=== PATIENT | female | born 1990 | race Caucasian/White ===

== ENCOUNTER → 2020-02-25 | Outpatient (REF) | payer MEDICAID, OTHER ==
[~2020-02-25] MED LIST: ACET160S3; CLEO150C; DECADRON
== END ==
LOC: M SFHCWAGY 13:02
PROVIDERS: ATTEND Advanced Practice Midwife
DX: Z12.4 Encounter for screening for malignant neoplasm of cervix (principal)

== ENCOUNTER → 2020-02-25 | Outpatient (CLI) | payer MEDICAID, OTHER ==
[2020-02-25 11:15] LABS: BASO % 0.3 % (0.0-1.0); EOS % 0.7 % (0.0-3.0); HEMATOCRIT 34.9 % (36.0-47.0); LYMPH # 1.6 10^3/uL (1.5-5.0); LYMPH % 26.9 % (24.0-44.0); MEAN CORPUSCULAR HEMOGLOBIN 33.1 pg (27.0-33.0); MEAN CORPUSCULAR HGB CONC 34.4 g/dl (32.0-36.5); MEAN CORPUSCULAR VOLUME 96.4 fl (80.0-96.0); MONO # 0.3 10^3/uL (0.0-0.8); MONO % 5.6 % (0.0-5.0); NEUTROPHILS # 3.9 10^3/uL (1.5-8.5); NEUTROPHILS % 66.2 % (36.0-66.0); PLATELET COUNT, AUTOMATED 135 10^3/uL (150-450); RED BLOOD COUNT 3.62 10^6/uL (4.00-5.40); WHITE BLOOD COUNT 5.9 10^3/uL (4.0-10.0)
[2020-02-25 12:32] LABS: HEPATITIS C VIRUS ABY INDEX 0.1 INDEX (<0.8); HIV 1&2 SCREEN CENTAUR NEGATIVE (NEGATIVE)
[2020-02-25 13:16] LABS: CHLAMYDIA DNA AMPLIFICATION NEGATIVE (NEGATIVE); GC DNA AMPLIFICATION NEGATIVE (NEGATIVE)
== END ==
LOC: M PLALAB 08:16
PROVIDERS: ATTEND Advanced Practice Midwife
DX: Z34.01 Encounter for supervision of normal first pregnancy, first trimester (principal); Z3A.00 Weeks of gestation of pregnancy not specified

== ENCOUNTER → 2020-03-02 | Outpatient (REF) | payer MEDICAID, OTHER | LOC: M SFHCLERA 16:10 | PROVIDERS: ATTEND Nurse Practitioner Family | DX: Z20.828 Contact with and (suspected) exposure to other viral communicable diseases (principal) ==

== ENCOUNTER → 2020-03-23 | Outpatient (CLI) | payer OTHER | LOC: M PLALAB 15:30 | PROVIDERS: ATTEND Obstetrics & Gynecology | DX: Z34.82 Encounter for supervision of other normal pregnancy, second trimester (principal); Z3A.00 Weeks of gestation of pregnancy not specified ==

== ENCOUNTER → 2020-04-21 | Outpatient (CLI) | payer OTHER ==
--- NOTE | 2020-04-22 08:31 | REP ---
INDICATION: ANATOMY COMPARISON: None. TECHNIQUE: Transabdominal obstetrical ultrasound with color Doppler evaluation. FINDINGS: Examination demonstrates a single live intrauterine in breech presentation. motion is identified by technologist. Placenta is noted anterior and grade 1 without evidence for placenta previa or abruption. Amniotic fluid volume is normal. Cervix measures 4.2 cm in length and appears closed.. Gestational age by current measurements 20 weeks 4 days with RAYA 09/04/2020. FHR equals 138 beats per minute. BPD: 4.7 cm 20 weeks 1 day HC: 18.6 cm 20 weeks 6 days AC: 16.0 cm 21 weeks 0 days FL: 3.4 cm twenty weeks 4 days HL: 3.1 cm 20 weeks 1 day HC/AC: 1.16 Estimated weight 381 grams (59thpercentile). Anatomical assessment demonstrates normal structures including cranium, choroid plexus, cavum, cerebellum/posterior fossa, facial features, lungs, four-chamber heart/ventricular outflow tracts, diaphragm, stomach, cord insertion/three-vessel cord, kidneys/bladder, spine, and extremities. IMPRESSION: Single live intrauterine in breech presentation demonstrating appropriate estimated weight. Anatomical assessment is complete and normal. <Electronically signed by Arnoldo Ivy > 04/22/20 [id number]
== END ==
LOC: M WHC 14:02
PROVIDERS: ATTEND Obstetrics & Gynecology
DX: O32.1XX0 Maternal care for breech presentation, not applicable or unspecified (principal); Z36.89 Encounter for other specified antenatal screening; Z3A.20 20 weeks gestation of pregnancy

== ENCOUNTER → 2020-06-29 | Outpatient (REF) | payer OTHER ==
[2020-06-29 13:52] LABS: HEMATOCRIT 38.7 % (36.0-47.0); HEMOGLOBIN 12.6 g/dl (12.0-15.5); MEAN CORPUSCULAR HEMOGLOBIN 32.4 pg (27.0-33.0); MEAN CORPUSCULAR HGB CONC 32.6 g/dl (32.0-36.5); MEAN CORPUSCULAR VOLUME 99.5 fl (80.0-96.0); PLATELET COUNT, AUTOMATED 135 10^3/uL (150-450); RED BLOOD COUNT 3.89 10^6/uL (4.00-5.40); WHITE BLOOD COUNT 7.7 10^3/uL (4.0-10.0)
== END ==
LOC: M PLALAB 09:16
PROVIDERS: ATTEND Advanced Practice Midwife
DX: Z3A.24 24 weeks gestation of pregnancy (principal)

== ENCOUNTER → 2020-08-11 | Outpatient (REF) | payer OTHER ==
[2020-08-11 14:21] LABS: HEMATOCRIT 39.9 % (36.0-47.0); MEAN CORPUSCULAR HGB CONC 32.6 g/dl (32.0-36.5); MEAN CORPUSCULAR VOLUME 101.3 fl (80.0-96.0); PLATELET COUNT, AUTOMATED 124 10^3/uL (150-450); RED BLOOD COUNT 3.94 10^6/uL (4.00-5.40); WHITE BLOOD COUNT 9.7 10^3/uL (4.0-10.0)
== END ==
LOC: M PLALAB 09:37
PROVIDERS: ATTEND Obstetrics & Gynecology
DX: Z34.03 Encounter for supervision of normal first pregnancy, third trimester (principal); Z36.89 Encounter for other specified antenatal screening

== ENCOUNTER → 2020-08-22 | Outpatient (CLI) | payer OTHER ==
[~2020-08-22] MED LIST changes: +ALBU83IN INH; +PRENMIS3 PO
== END ==
LOC: M LABSMTC 10:32
PROVIDERS: ATTEND Anesthesiology
DX: Z01.812 Encounter for preprocedural laboratory examination (principal); Z20.822 Contact with and (suspected) exposure to COVID-19

== ENCOUNTER 2020-08-27 05:47 | Inpatient (IN) | payer OTHER ==
[~2020-08-27] VITALS: Ht 160 cm; Wt 80.6 kg
[2020-08-27] VITALS (7 sets, daily range): BP systolic 111–139; BP diastolic 59–87
[2020-08-27] MEDS ORDERED: ACET325C5 PO (06:03)
[2020-08-27] MEDS ORDERED: ceFAZolin SOD 2 GM in IV 1 EA IV ONE (06:20)
[2020-08-27] MEDS ORDERED: BICITRA 30ML SOLN UDC PO ONE (06:20)
[2020-08-27 06:41] LABS: HEMATOCRIT 41.2 % (36.0-47.0); HEMOGLOBIN 13.6 g/dl (12.0-15.5); MEAN CORPUSCULAR HEMOGLOBIN 32.4 pg (27.0-33.0); MEAN CORPUSCULAR VOLUME 98.1 fl (80.0-96.0); PLATELET COUNT, AUTOMATED 113 10^3/uL (150-450); WHITE BLOOD COUNT 8.8 10^3/uL (4.0-10.0)
[2020-08-27] MEDS ORDERED: OXYTOCIN INJ 10 UNITS/ML VIAL (J2590) As Ordered ONE (07:19)
[2020-08-27] MEDS ORDERED: ONDANSETRON 4MG/2ML VIAL As Ordered ONE (07:19)
[2020-08-27] MEDS ORDERED: dexameTHASONE 4 MG/ML 1ML VIAL (J1100 PER 1MG) As Ordered ONE (07:19)
[2020-08-27] MEDS ORDERED: KETOROLAC 60MG 2ML VIAL As Ordered ONE (07:19)
[2020-08-27] MEDS ORDERED: MORPHINE PRES-FREE INJ 10 MG/10 ML VIAL (J2274) As Ordered ONE (07:20)
[2020-08-27] MEDS ORDERED: fentaNYL 100 MCG/2 ML INJECTION (J3010) As Ordered ONE ×2 (07:20→09:22)
[2020-08-27] MEDS ORDERED: diphenhydrAMINE 50MG/ML VIAL (J1200) IV PRN (07:51)
[2020-08-27] MEDS ORDERED: NALBUPHINE HCL 10 MG/ML AMP (J2300) IV PRN ×2 (07:51→10:00)
[2020-08-27] MEDS ORDERED: METOCLOPRAMIDE INJ 10MG/2ML VIAL (J2765 PER 1) IV PRN (07:51)
[2020-08-27] MEDS ORDERED: ONDANSETRON 4MG/2ML VIAL IV PRN ×3 (07:51→10:00)
[2020-08-27] MEDS ORDERED: NALOXONE INJ 0.4MG/1ML VIAL (J2310 PER 1MG) IV PRN ×2 (07:51)
[2020-08-27] MEDS ORDERED: ePHEDrine SULFATE 25 MG/5 ML(5MG/ML) SYRINGE As Ordered ONE (08:14)
[2020-08-27] MEDS ORDERED: RHOGAM 300 MCG (1500 IU) INJ (J2790) IM SCH (09:45)
[2020-08-27] MEDS ORDERED: LR 1,000 ML IV SCH (09:45)
[2020-08-27] MEDS ORDERED: MEASLES,MUMPS,RUBELLA VACCINE INJ (MMR-II) (90707) SC SCH (09:45)
[2020-08-27] MEDS ORDERED: HYDROmorphone (DILAUDID) 4 MG TAB PO PRN (09:45)
[2020-08-27] MEDS ORDERED: SIMETHICONE 80MG CHEW TAB PO PRN (09:45)
[2020-08-27] MEDS ORDERED: HYDROmorphone 2 MG TAB PO PRN (09:45)
[2020-08-27] MEDS ORDERED: fentaNYL 100 MCG/2 ML INJECTION (J3010) IV PRN (10:00)
[2020-08-27] MEDS ORDERED: oxyCODONE 5MG TAB PO PRN (10:00)
[2020-08-27] MEDS ORDERED: HYDROMORPHONE HCL 0.5 MG/ 0.5 ML SYRINGE (J1170 PER 1) IV PRN (10:00)
[2020-08-27] MEDS ORDERED: OXYTOCIN DRIP 30 UNITS in IV 1 EA IV SCH (10:00)
[2020-08-27] MEDS ORDERED: OXYTOCIN 30 UNITS IN 0.9% NaCl 500ML IV BAG (J2590) As Ordered ONE (10:18)
[2020-08-27] MEDS ORDERED: oxyCODONE 5MG TAB As Ordered ONE (10:41)
[2020-08-27] MEDS ORDERED: diphenhydrAMINE 50MG/ML VIAL (J1200) As Ordered ONE (10:41)
[2020-08-27] MEDS ORDERED: METOCLOPRAMIDE INJ 10MG/2ML VIAL (J2765 PER 1) As Ordered ONE (10:48)
[2020-08-27] MEDS: KETOROLAC 30 MG/ML 1ML VIAL IV SCH ×2 (14:40→20:21)
[2020-08-27] MEDS: DOCUSATE SODIUM 100MG CAPSULE PO SCH (20:20)
[2020-08-28 02:00] VITALS: BP 118/72
[2020-08-28] MEDS: KETOROLAC 30 MG/ML 1ML VIAL IV SCH (03:32)
[2020-08-28 06:00] VITALS: BP 110/59
[2020-08-28] MEDS ORDERED: PERCOCET 5MG/325MG TAB PO PRN (08:05)
[2020-08-28] MEDS: DOCUSATE SODIUM 100MG CAPSULE PO SCH ×2 (08:08→19:56)
[2020-08-28] MEDS: PRENATAL VITAMINS CHEWABLE TABLET PO SCH (08:08)
--- NOTE | 2020-08-28 08:10 | IPNPDOC ---
Progress Note Date of Service: Aug 28, 2020 Day#: 1 Progress Note SUBJECT: Becky is a 29-year-old female who had a primary section ye sterday for breech presentation. She does report cramping this morning. She has been ambulating, eating a regular diet and voiding without issues. OBJECTIVE: VITAL SIGNS: Within normal limits, afebrile. Alert and oriented times three. Breath sounds clear to auscultation. Regular rate with out use of accessory muscles Abdomen: Fundus firm at U. Dressing intact. Minimal lochia. ASSESSMENT: Day 1 postoperative PLAN: 1. Continue supportive nursing care. 2. Kpad ordered for discomfort. 3. Dilaudid switched to Percocet PO. 4. Patient may shower today. 5. Patient to ambulate. 6. Anticipate discharge to home tomorrow. VS, I&O, 24H, Fishbone Vital Signs/I&O Vital Signs Date Time Temp Pulse Resp B/P (MAP) Pulse Ox O2 Delivery O2 Flow Rate FiO2 08/28/20 06:00 97.1 81 16 110/59 (76) 100 Room Air I&O- Last 24 Hours up to 6 AM 08/28/20 06:00 Intake Total 1810 ml Output Total 3050 ml Balance -1240 ml TALIB MITCHELL CNM Aug 28, 2020 08:10
[2020-08-28 08:49] LABS: HEMATOCRIT 31.5 % (36.0-47.0); MEAN CORPUSCULAR HEMOGLOBIN 32.6 pg (27.0-33.0); MEAN CORPUSCULAR HGB CONC 32.4 g/dl (32.0-36.5); MEAN CORPUSCULAR VOLUME 100.6 fl (80.0-96.0); RED BLOOD COUNT 3.13 10^6/uL (4.00-5.40); WHITE BLOOD COUNT 9.3 10^3/uL (4.0-10.0)
[2020-08-28 09:26] LABS: HEMOGLOBIN 10.2 g/dl (12.0-15.5); PLATELET COUNT, AUTOMATED 91 10^3/uL (150-450)
[2020-08-28 10:01] VITALS: BP 131/77
[2020-08-28] MEDS: IBUPROFEN 800 MG TAB PO SCH ×2 (11:03→18:36)
--- NOTE | 2020-08-28 12:22 | RO ---
OPERATIVE NOTE DATE OF OPERATION: 08/27/2020 STAFF SURGEON: Sangeeta Mullins MD POULTRY SLAUGHTERER: Renata Hernandez CNM CLINICAL SERVICE: Obstetrics. INDICATION FOR OPERATION: Radha is a 29-year-old G1, P1-0-0-1 who at term was noted to have breech presentation and she was given the option of ECV versus a primary section and elected for a section, which was performed at 39 and 0/7 weeks. PREOPERATIVE DIAGNOSIS: Persistent breech presentation at term. POSTOPERATIVE DIAGNOSIS: Persistent breech presentation at term, delivered. MATERIAL FORWARDED TO THE LAB FOR EXAMINATION: None. DESCRIPTION OF FINDINGS: Male in double footling breech presentation. Apgars 7/9. Weight 2850 grams or 6 pounds 5 ounces. There was a double nuchal cord. The uterus was normal in appearance. INFECTION CLASSIFICATION: 2. ESTIMATED BLOOD LOSS: 600 mL. URINE OUTPUT: 300 mL of clear yellow urine. IV FLUIDS: 2200 mL of lactated Ringer's. OPERATION PERFORMED: Primary low transverse section. DESCRIPTION OF OPERATION: After obtaining informed consent, the patient was taken to the operating room. She had a reactive NST prior. She received spinal anesthesia. Méndez catheter was placed. Bilateral sequential compression devices were placed. She was prepped and draped in normal sterile fashion in the dorsal supine position with a left lateral tilt. She received 2 grams of IV Ancef prophylactically. Timeout was performed to confirm the patient's name, date of , procedure, and indications. The team was in agreement. Spinal anesthesia was found to be adequate using an Allis clamp. Pfannenstiel skin incision was made with a scalpel and carried through to the underlying layer of fascia. Fascia was incised in the midline and the incision was extended laterally with Chand scissors. Superior and inferior aspects of the fascial incision were grasped with Bettye clamps, elevated, and the underlying rectus muscles were dissected off bluntly and sharply. Peritoneum was entered digitally. Rectus muscles were in the midline. Peritoneal incision was extended superiorly and inferiorly with good visualization of the bladder. The Mobius retractor was inserted. The vesicouterine peritoneum was identified, grasped with pickups, and entered sharply with Metzenbaum scissors. Incision was extended laterally and the bladder flap was created digitally. The lower uterine segment was scored in a transverse fashion with the scalpel. Uterus was entered bluntly and the incision was extended with traction. Clear amniotic fluid was noted. The 's position at that point was double footling breech and the feet were delivered and then the infant was delivered to the level of the buttocks. The legs were delivered using Pinard maneuver. At the level of the shoulders, the arms were then delivered using Lovset maneuver and fundal pressure was applied. The head was delivered atraumatically. The nose and mouth were suctioned with bulb suction. Cord was clamped x2 and cut. Infant was handed off to the awaiting nursing team. Placenta was removed with uterine massage and traction on the umbilical cord. The uterus was left in situ, cleared of all clots and debris. The uterine incision was repaired with 0-Vicryl suture in a running-locked fashion. A second layer of 0-Monocryl was used to close the hysterotomy incision in an imbricating fashion. Notably, she had many small tears with pulling through of the suture. It took significant time to gain complete hemostasis, and afterward, I applied a layer of Ryan. The gutters were cleared of all clots and the Mobius was removed. The peritoneum was closed using 3-0 Vicryl suture in a running fashion. Rectus muscles were reapproximated with [id number] stitches using 3-0 Vicryl suture. Fascia was reapproximated with 0-Vicryl suture in a running fashion. Subcutaneous tissue was copiously irrigated. Quniton's fascia was reapproximated using 3-0 Vicryl sutures in a running fashion. The skin edges were reapproximated using three inverted interrupted stitches using 3-0 Vicryl sutures followed by a running subcuticular stitch using 4-0 Monocryl suture. Incision was cleaned using wet lap. Steri-Strips were applied in the usual fashion perpendicular to the Pfannenstiel incision. Optifoam was applied overlying. The vagina was cleared of all blood clot without active bleeding noted. The fundus was firm at U-2. All counts were correct x2. The procedure was without complications. The patient tolerated the procedure well. She was taken to the recovery room on Labor and Delivery in stable condition. DELIA
[2020-08-28 14:00] VITALS: BP 135/65
[2020-08-28] MEDS: PERCOCET 5MG/325MG TAB PO PRN ×2 (14:03→19:57)
[2020-08-28 18:00] VITALS: BP 136/72
[2020-08-28 21:51] VITALS: BP 130/59
[2020-08-29 02:06] VITALS: BP 121/58
[2020-08-29] MEDS: IBUPROFEN 800 MG TAB PO SCH ×2 (02:11→11:14)
[2020-08-29] MEDS: PERCOCET 5MG/325MG TAB PO PRN ×2 (02:12→08:28)
[2020-08-29 06:24] VITALS: BP 120/62
[2020-08-29] MEDS ORDERED: PERCOCET PO (07:48)
[2020-08-29] MEDS ORDERED: IBUP80TA PO (07:48)
--- NOTE | 2020-08-29 07:52 | OBDS ---
[facility] Obstetrical Discharge Sum. Obstetrical Discharge Summary Date: Aug 29, 2020 Time: 07:50 VDRL: Non-Reactive Rubella: Immune A/P, Post Course List any complications Admission diagnosis:Term breech presentation . Discharge diagnosis: Same Condition at Discharge: [stable] Discharge Instructions: [nothing in vagina for 6 weeks] Activity: [as tolerated ] Diet: [regular] Medications: [see list] Follow-up: [2 weeks ] Other: Silvano Dominguez DO Aug 29, 2020 07:52
[2020-08-29] MEDS: PRENATAL VITAMINS CHEWABLE TABLET PO SCH (08:28)
[2020-08-29] MEDS: DOCUSATE SODIUM 100MG CAPSULE PO SCH (08:28)
== END 2020-08-29 11:40 | disposition home or self-care (01) | DRG 540 ==
LOC: M LDI 05:47 → M OBS 10:57
PROVIDERS: ADMIT Obstetrics & Gynecology; ATTEND Obstetrics & Gynecology
PROC: 10D00Z1 Extraction of Products of Conception, Low, Open Approach (ICD-10-PCS; principal; 2020-08-27 07:30)
DX: O32.8XX0 Maternal care for other malpresentation of fetus, not applicable or unspecified (principal); Z3A.39 39 weeks gestation of pregnancy; Z37.0 Single live birth

== ENCOUNTER → 2021-06-22 | Outpatient (REF) | payer OTHER ==
[~2021-06-22] MED LIST changes: +ACET325C5 PO; +IBUP80TA PO; +PERCOCET PO
== END ==
LOC: M LAB REF 16:23
PROVIDERS: ATTEND Physician Assistant Medical
DX: R50.9 Fever, unspecified (principal); R53.83 Other fatigue

== ENCOUNTER → 2021-10-10 | Outpatient (REF) | payer OTHER | LOC: M PLALAB 14:59 | PROVIDERS: ATTEND Advanced Practice Midwife | DX: N89.8 Other specified noninflammatory disorders of vagina (principal) ==

== ENCOUNTER 2021-12-30 17:01 | Emergency (ER) | payer OTHER ==
[~2021-12-30] VITALS: Ht 160 cm; Wt 60.2 kg
[~2021-12-30 17:01] MED LIST changes: +ALBU2.5V10 INH; -ALBU83IN INH
[2021-12-30 17:03] VITALS: BP 106/55
[2021-12-30 21:02] LABS: BASO % 0.3 % (0.0-1.0); EOS # 0.1 10^3/uL (0.0-0.5); EOS % 1.1 % (0.0-3.0); HEMATOCRIT 40.2 % (36.0-47.0); HEMOGLOBIN 13.8 g/dl (12.0-15.5); LYMPH # 1.2 10^3/uL (1.5-5.0); LYMPH % 18.7 % (24.0-44.0); MEAN CORPUSCULAR HEMOGLOBIN 31.3 pg (27.0-33.0); MEAN CORPUSCULAR HGB CONC 34.3 g/dl (32.0-36.5); MEAN CORPUSCULAR VOLUME 91.2 fl (80.0-96.0); MONO # 0.3 10^3/uL (0.0-0.8); MONO % 4.8 % (2.0-8.0); NEUTROPHILS % 74.8 % (36.0-66.0); PLATELET COUNT, AUTOMATED 183 10^3/uL (150-450); RED BLOOD COUNT 4.41 10^6/uL (4.00-5.40); WHITE BLOOD COUNT 6.6 10^3/uL (4.0-10.0)
[2021-12-30 21:32] LABS: BLOOD UREA NITROGEN 6 MG/DL (7-18); CALCIUM LEVEL 8.5 MG/DL (8.5-10.1); CARBON DIOXIDE LEVEL 22 MEQ/L (21-32); CHLORIDE LEVEL 111 MEQ/L (98-107); CREATININE FOR GFR 0.58 MG/DL (0.55-1.30); GLOMERULAR FILTRATION RATE > 60.0 (>60); GLUCOSE, FASTING 90 MG/DL (70-100); POTASSIUM SERUM 3.7 MEQ/L (3.5-5.1); SODIUM LEVEL 140 MEQ/L (136-145)
[2021-12-30] MEDS ORDERED: NS 1,000 ML IV ONE (21:35)
[2021-12-30] MEDS ORDERED: ONDANSETRON 4MG 2ML VIAL IV ONE (21:35)
[2021-12-30 22:09] LABS: HCG, SERUM QUANTITATIVE 46832 MIU/ML
[2021-12-30] MEDS ORDERED: ONDA4TAB6 PO (23:02)
== END 2021-12-30 23:50 | disposition home or self-care (01) ==
LOC: M ED 17:01
DX: A08.4 Viral intestinal infection, unspecified (principal); Z3A.01 Less than 8 weeks gestation of pregnancy; O99.511 Diseases of the respiratory system complicating pregnancy, first trimester; J45.909 Unspecified asthma, uncomplicated; O99.341 Other mental disorders complicating pregnancy, first trimester; F31.9 Bipolar disorder, unspecified; F32.A Depression, unspecified; F41.9 Anxiety disorder, unspecified; F90.9 Attention-deficit hyperactivity disorder, unspecified type; Z88.0 Allergy status to penicillin; Z88.8 Allergy status to other drugs, medicaments and biological substances; Z77.098 Contact with and (suspected) exposure to other hazardous, chiefly nonmedicinal, chemicals
CPT/HCPCS: 80048; 81001; 84702; 85025; 96361; 96374; 99282; J2405

== ENCOUNTER → 2022-01-09 | Outpatient (CLI) | payer OTHER ==
[~2022-01-09] MED LIST changes: +ONDA4TAB6 PO
== END ==
LOC: M PLALAB 16:13
PROVIDERS: ATTEND Advanced Practice Midwife
DX: O20.0 Threatened abortion (principal); Z3A.00 Weeks of gestation of pregnancy not specified

== ENCOUNTER → 2022-01-11 | Outpatient (CLI) | payer OTHER | LOC: M PLALAB 14:01 | PROVIDERS: ATTEND Advanced Practice Midwife | DX: O20.0 Threatened abortion (principal) ==

== ENCOUNTER → 2022-02-07 | Outpatient (CLI) | payer OTHER ==
[2022-02-07 17:32] LABS: BASO % 0.6 % (0.0-1.0); EOS % 0.8 % (0.0-3.0); HEMATOCRIT 39.9 % (36.0-47.0); HEMOGLOBIN 13.4 g/dl (12.0-15.5); LYMPH # 1.6 10^3/uL (1.5-5.0); MEAN CORPUSCULAR HEMOGLOBIN 31.3 pg (27.0-33.0); MEAN CORPUSCULAR HGB CONC 33.6 g/dl (32.0-36.5); MEAN CORPUSCULAR VOLUME 93.2 fl (80.0-96.0); MONO # 0.3 10^3/uL (0.0-0.8); MONO % 5.4 % (2.0-8.0); NEUTROPHILS # 3.3 10^3/uL (1.5-8.5); PLATELET COUNT, AUTOMATED 170 10^3/uL (150-450); RED BLOOD COUNT 4.28 10^6/uL (4.00-5.40); WHITE BLOOD COUNT 5.2 10^3/uL (4.0-10.0)
[2022-02-07 19:04] LABS: HIV 1&2 SCREEN CENTAUR NEGATIVE (NEGATIVE)
[2022-02-07 23:04] LABS: GC DNA AMPLIFICATION NEGATIVE (NEGATIVE)
== END ==
LOC: M PLALAB 14:18
PROVIDERS: ATTEND Obstetrics & Gynecology
DX: Z34.81 Encounter for supervision of other normal pregnancy, first trimester (principal); Z3A.10 10 weeks gestation of pregnancy

== ENCOUNTER → 2022-03-27 | Outpatient (CLI) | payer OTHER | LOC: M WHC 07:02 | PROVIDERS: ATTEND Obstetrics & Gynecology | DX: O34.211 Maternal care for low transverse scar from previous cesarean delivery (principal); Z3A.20 20 weeks gestation of pregnancy ==

== ENCOUNTER → 2022-05-20 | Outpatient (REF) | payer OTHER | LOC: M LAB REF 17:57 | PROVIDERS: ATTEND Physician Assistant Medical | DX: R05.9 Cough, unspecified (principal) ==

== ENCOUNTER → 2022-06-02 | Outpatient (CLI) | payer OTHER | LOC: M WHC 07:06 | PROVIDERS: ATTEND Specialist | DX: Z36.2 Encounter for other antenatal screening follow-up (principal); Z3A.30 30 weeks gestation of pregnancy ==

== ENCOUNTER → 2022-06-02 | Outpatient (CLI) | payer OTHER ==
[2022-06-02 10:43] LABS: HEMATOCRIT 38.5 % (36.0-47.0); HEMOGLOBIN 12.7 g/dl (12.0-15.5); PLATELET COUNT, AUTOMATED 190 10^3/uL (150-450); RED BLOOD COUNT 3.85 10^6/uL (4.00-5.40); WHITE BLOOD COUNT 8.5 10^3/uL (4.0-10.0)
[2022-06-02 12:04] LABS: GC DNA AMPLIFICATION NEGATIVE (NEGATIVE)
== END ==
LOC: M PLALAB 07:11
PROVIDERS: ATTEND Advanced Practice Midwife
DX: Z34.92 Encounter for supervision of normal pregnancy, unspecified, second trimester (principal)

== ENCOUNTER → 2022-07-05 | Outpatient (CLI) | payer OTHER | LOC: M RAD 06:23 | PROVIDERS: ATTEND Advanced Practice Midwife | DX: Z34.93 Encounter for supervision of normal pregnancy, unspecified, third trimester (principal); Z3A.34 34 weeks gestation of pregnancy ==

== ENCOUNTER → 2022-07-19 | Outpatient (REF) | payer OTHER | LOC: M SFHCWAGY 12:51 | PROVIDERS: ATTEND Obstetrics & Gynecology | DX: O34.211 Maternal care for low transverse scar from previous cesarean delivery (principal) ==

== ENCOUNTER 2022-08-03 20:19 | Outpatient (CLI) | payer OTHER ==
[~2022-08-03] VITALS: Ht 160 cm; Wt 78.2 kg
[~2022-08-03 20:19] MED LIST changes: +BUSP5TA; +SERT25TA21
[2022-08-03 20:43] VITALS: BP 123/77
== END 2022-08-03 21:18 | disposition home or self-care (01) ==
LOC: M LDO 20:19
PROVIDERS: ATTEND Obstetrics & Gynecology
DX: O47.1 False labor at or after 37 completed weeks of gestation (principal); Z3A.38 38 weeks gestation of pregnancy
CPT/HCPCS: 59025; G0463

== ENCOUNTER → 2022-08-09 | Outpatient (CLI) | payer OTHER ==
[~2022-08-09] VITALS: Ht 160 cm; Wt 78.6 kg
[2022-08-09 14:28] VITALS: BP 128/76
== END ==
LOC: M LDO 13:52
PROVIDERS: ATTEND Advanced Practice Midwife
DX: O47.1 False labor at or after 37 completed weeks of gestation (principal); O34.219 Maternal care for unspecified type scar from previous cesarean delivery; O99.343 Other mental disorders complicating pregnancy, third trimester; F41.9 Anxiety disorder, unspecified; F32.A Depression, unspecified; Z3A.39 39 weeks gestation of pregnancy
CPT/HCPCS: 59025; G0463

== ENCOUNTER 2022-08-21 00:38 | Inpatient (IN) | payer OTHER ==
[~2022-08-21] VITALS: Ht 160 cm; Wt 79.1 kg
[2022-08-21] VITALS (33 sets, daily range): BP systolic 90–165; BP diastolic 51–102
[2022-08-21] MEDS ORDERED: OXYTOCIN DRIP 30 UNITS in IV 1 EA IV PRN (01:20)
[2022-08-21] MEDS ORDERED: LIDOCAINE 1% MDV 20ML VIAL INFIL PRN (01:20)
[2022-08-21 02:22] LABS: HEMOGLOBIN 12.9 g/dl (12.0-15.5); MEAN CORPUSCULAR HEMOGLOBIN 33.2 pg (27.0-33.0); MEAN CORPUSCULAR HGB CONC 33.9 g/dl (32.0-36.5); MEAN CORPUSCULAR VOLUME 97.7 fl (80.0-96.0); PLATELET COUNT, AUTOMATED 103 10^3/uL (150-450); RED BLOOD COUNT 3.89 10^6/uL (4.00-5.40); WHITE BLOOD COUNT 9.5 10^3/uL (4.0-10.0)
[2022-08-21] MEDS ORDERED: ZOLO100T PO (08:29)
[2022-08-21] MEDS ORDERED: LACTATED RINGER'S 1000 ML IV STA (08:46)
[2022-08-21] MEDS ORDERED: PROMETHAZINE 25MG/ML 1ML VIAL IV ONE (08:50)
[2022-08-21] MEDS ORDERED: CARBOPROST TROMETHAMINE 250 MCG/ML AMP IM PRN (08:50)
[2022-08-21] MEDS ORDERED: OXYTOCIN INJ 10UNITS/ML 1ML VIAL IM PRN (08:50)
[2022-08-21] MEDS ORDERED: OXYTOCIN DRIP 30 UNITS in IV 1 EA IV SCH ×2 (08:50→16:00)
[2022-08-21] MEDS ORDERED: BUTORPHANOL 2 MG/ML 1ML VIAL IV ONE (08:50)
[2022-08-21] MEDS ORDERED: METHYLERGONOVINE MALEATE 0.2MG/ML 1ML VIAL IM PRN (08:50)
[2022-08-21] MEDS ORDERED: TRANEXAMIC ACID INJection 1,000 MG in NS 100 ML IV PRN (08:50)
[2022-08-21] MEDS ORDERED: HOME MED LIST COMPLETE! XX SCH (08:55)
[2022-08-21] MEDS: PRENATAL VITAMINS CHEWABLE TABLET PO SCH (09:00)
[2022-08-21] MEDS: LR 1,000 ML IV SCH ×3 (09:36→21:30)
[2022-08-21] MEDS ORDERED: diphenhydrAMINE 50MG/ML VIAL IV PRN ×2 (11:35→17:10)
[2022-08-21] MEDS ORDERED: EPIDURAL/PCA KEYS XX PRN (11:35)
[2022-08-21] MEDS ORDERED: ONDANSETRON 4MG 2ML VIAL IV PRN ×3 (11:35→17:10)
[2022-08-21] MEDS ORDERED: FENTANYL/ROPIVACAINE/NACL BAG 100 ML EPIDURAL SCH (11:35)
[2022-08-21] MEDS ORDERED: NALOXONE INJ 0.4MG/1ML VIAL IV PRN ×3 (11:35→17:10)
[2022-08-21] MEDS ORDERED: LR 500 ML IV PRN (11:35)
[2022-08-21] MEDS: ePHEDrine SULFATE 25 MG/5 ML(5MG/ML) SYRINGE IVP PRN ×2 (13:51→14:07)
[2022-08-21] MEDS ORDERED: ceFAZolin SOD 2 GM in IV 1 EA IV ONE (14:35)
[2022-08-21] MEDS ORDERED: AZITHROMYCIN INJ 500 MG, VIAL MATE ADAPTER 1 EACH in NS 250 ML IV ONE (14:35)
[2022-08-21] MEDS ORDERED: BICITRA 30ML SOLN UDC PO ONE (14:35)
[2022-08-21] MEDS ORDERED: PERCOCET 5MG/325MG TAB PO PRN ×2 (16:00)
[2022-08-21] MEDS ORDERED: MOM 30ML SUSPENSION UDC PO PRN (16:00)
[2022-08-21] MEDS ORDERED: RHOGAM 300MCG (1500IU) INJ IM SCH (16:00)
[2022-08-21] MEDS ORDERED: oxyCODONE 5MG TAB PO PRN (17:10)
[2022-08-21] MEDS ORDERED: LR 1,000 ML IV SCH (17:10)
[2022-08-21] MEDS ORDERED: fentaNYL 100 MCG/2 ML INJECTION IV PRN (17:10)
[2022-08-21] MEDS ORDERED: MEPERIDINE 25 MG/ML 1ML VIAL IV PRN (17:10)
[2022-08-21] MEDS ORDERED: **NOTE PATIENT COMMENT** MISC XX SCH (17:10)
[2022-08-21] MEDS ORDERED: METOCLOPRAMIDE INJ 10MG/2ML VIAL IV PRN (17:10)
[2022-08-21] MEDS ORDERED: OXYTOCIN 30UNITS IN 0.9% NaCl 500ML IV BAG As Ordered ONE (17:25)
[2022-08-21] MEDS ORDERED: KETOROLAC 30 MG/ML 1ML VIAL IV SCH (18:00)
[2022-08-21] MEDS: DOCUSATE SODIUM 100MG CAPSULE PO SCH (21:00)
[2022-08-21] MEDS: KETOROLAC 30 MG/ML 1ML VIAL IV SCH (22:00)
[2022-08-22] MEDS: LR 1,000 ML IV SCH ×4 (00:50→10:04)
[2022-08-22 02:00] VITALS: BP 112/66
[2022-08-22] MEDS: KETOROLAC 30 MG/ML 1ML VIAL IV SCH (03:30)
[2022-08-22 07:03] LABS: HEMATOCRIT 32.7 % (36.0-47.0); MEAN CORPUSCULAR HEMOGLOBIN 32.8 pg (27.0-33.0); MEAN CORPUSCULAR HGB CONC 32.4 g/dl (32.0-36.5); MEAN CORPUSCULAR VOLUME 101.2 fl (80.0-96.0); RED BLOOD COUNT 3.23 10^6/uL (4.00-5.40); WHITE BLOOD COUNT 8.6 10^3/uL (4.0-10.0)
[2022-08-22 07:31] LABS: HEMOGLOBIN 10.6 g/dl (12.0-15.5); PLATELET COUNT, AUTOMATED 79 10^3/uL (150-450)
[2022-08-22] MEDS: DOCUSATE SODIUM 100MG CAPSULE PO SCH ×2 (09:00→18:33)
[2022-08-22] MEDS: SLF 3 ML SYR IV SCH ×3 (10:02→10:05)
[2022-08-22] MEDS: SERTRALINE 100 MG TAB PO SCH (10:05)
[2022-08-22] MEDS: PRENATAL VITAMINS CHEWABLE TABLET PO SCH (10:05)
[2022-08-22] MEDS ORDERED: IBUPROFEN 800 MG TAB PO SCH (12:00)
[2022-08-22] MEDS ORDERED: INFLUENZA QUADRIVALENT PF VACCINE 0.5ML SYRINGE IM.IMMUN ONE (12:00)
[2022-08-22 14:00] VITALS: BP 118/55
[2022-08-22] MEDS ORDERED: oxyCODONE 5MG TAB PO PRN (17:50)
[2022-08-22 18:00] VITALS: BP 114/68
[2022-08-22] MEDS: ACETAMINOPHEN 500 MG TAB PO SCH (18:19)
[2022-08-22] MEDS: IBUPROFEN 600MG TAB PO SCH (20:26)
[2022-08-22 22:30] VITALS: BP 128/55
[2022-08-23] MEDS: ACETAMINOPHEN 500 MG TAB PO SCH ×3 (00:21→12:09)
[2022-08-23] MEDS: SIMETHICONE 80MG CHEW TAB PO PRN ×2 (00:21→08:10)
[2022-08-23] MEDS: IBUPROFEN 600MG TAB PO SCH ×2 (01:56→08:10)
[2022-08-23 02:00] VITALS: BP 111/55
[2022-08-23 06:00] VITALS: BP 108/66
[2022-08-23 06:57] LABS: HEMATOCRIT 30.7 % (36.0-47.0); HEMOGLOBIN 9.9 g/dl (12.0-15.5); MEAN CORPUSCULAR HEMOGLOBIN 32.8 pg (27.0-33.0); MEAN CORPUSCULAR HGB CONC 32.2 g/dl (32.0-36.5); MEAN CORPUSCULAR VOLUME 101.7 fl (80.0-96.0); PLATELET COUNT, AUTOMATED 86 10^3/uL (150-450); RED BLOOD COUNT 3.02 10^6/uL (4.00-5.40); WHITE BLOOD COUNT 7.5 10^3/uL (4.0-10.0)
[2022-08-23] MEDS: DOCUSATE SODIUM 100MG CAPSULE PO SCH (08:09)
[2022-08-23] MEDS: PRENATAL VITAMINS CHEWABLE TABLET PO SCH (08:09)
[2022-08-23] MEDS: SERTRALINE 100 MG TAB PO SCH (08:10)
[2022-08-23] MEDS ORDERED: INFLUENZA QUADRIVALENT PF VACCINE 0.5ML SYRINGE IM.IMMUN ONE (09:00)
[2022-08-23] MEDS ORDERED: MEASLES,MUMPS,RUBELLA VACCINE INJ (MMR-II) SC.IMMUN ONE (09:00)
[2022-08-23 10:00] VITALS: BP 118/65
[2022-08-23] MEDS ORDERED: IBUP-1022 PO (11:31)
[2022-08-23] MEDS ORDERED: OXYC-517 PO (11:31)
== END 2022-08-23 12:58 | disposition home or self-care (01) | DRG 540 ==
LOC: M LDO 00:38 → M LDI 01:14 → M OBS 18:33
PROVIDERS: ADMIT Specialist; ATTEND Specialist
PROC: 10D00Z1 Extraction of Products of Conception, Low, Open Approach (ICD-10-PCS; principal; 2022-08-21 15:30)
DX: O34.211 Maternal care for low transverse scar from previous cesarean delivery (principal); Z88.0 Allergy status to penicillin; Z88.8 Allergy status to other drugs, medicaments and biological substances; O62.0 Primary inadequate contractions; O66.41 Failed attempted vaginal birth after previous cesarean delivery; Z37.0 Single live birth; Z3A.41 41 weeks gestation of pregnancy; O48.0 Post-term pregnancy

== ENCOUNTER → 2024-08-04 | Outpatient (CLI) | payer OTHER ==
[~2024-08-04] MED LIST changes: +IBUP-1022 PO; +ONDA-282 PO; -ONDA4TAB6 PO; +OXYC-517 PO; +ZOLO100T PO
== END ==
LOC: M PLALAB 16:11
PROVIDERS: ATTEND Physician Assistant
DX: R53.83 Other fatigue (principal)

== ENCOUNTER → 2024-08-15 | Outpatient (REF) | payer OTHER ==
[2024-08-19 14:37] LABS: HPV APTIMA Not Detected (Not Detected)
== END ==
LOC: M PLALAB 10:15
PROVIDERS: ATTEND Advanced Practice Midwife
DX: Z01.419 Encounter for gynecological examination (general) (routine) without abnormal findings (principal); N76.0 Acute vaginitis; Z77.9 Other contact with and (suspected) exposures hazardous to health
CPT/HCPCS: 87624; G0123

== ENCOUNTER 2024-09-10 19:27 | Emergency (ER) | payer OTHER ==
[~2024-09-10] VITALS: Ht 160 cm; Wt 64.2 kg
[2024-09-10 19:30] VITALS: TEMP 97.9
[2024-09-10] MEDS ORDERED: LARI1TAB3 (20:05)
[2024-09-10 20:32] LABS: KETONE, URINE AUTO RFX NEGATIVE (NEGATIVE); LEUKOCYTE ESTERASE UR AUTO RFX NEGATIVE (NEGATIVE); MUCUS, URINE RFX SMALL (NEGATIVE); NITRITE, URINE AUTO RFX NEGATIVE (NEGATIVE); RBC, URINE AUTO RFX 1 /HPF (0-3); SQUAM EPITHELIAL CELL UR AURFX 2 /HPF (0-6); WBC, URINE AUTO RFX 0 /HPF (0-3)
[2024-09-10 20:52] LABS: BASO % 0.6 % (0.0-1.0); EOS # 0.1 10^3/uL (0.0-0.5); EOS % 0.9 % (0.0-3.0); HEMOGLOBIN 13.2 g/dl (12.0-15.5); LYMPH # 2.5 10^3/uL (1.5-5.0); LYMPH % 38.2 % (24.0-44.0); MEAN CORPUSCULAR HEMOGLOBIN 31.1 pg (27.0-33.0); MEAN CORPUSCULAR HGB CONC 33.8 g/dl (32.0-36.5); MEAN CORPUSCULAR VOLUME 91.8 fl (80.0-96.0); MONO # 0.3 10^3/uL (0.0-0.8); MONO % 5.3 % (2.0-8.0); NEUTROPHILS # 3.5 10^3/uL (1.5-8.5); NEUTROPHILS % 54.8 % (36.0-66.0); PLATELET COUNT, AUTOMATED 154 10^3/uL (150-450); RED BLOOD COUNT 4.25 10^6/uL (4.00-5.40); WHITE BLOOD COUNT 6.4 10^3/uL (4.0-10.0)
[2024-09-10 21:17] LABS: HCG, SERUM QUALITATIVE NEGATIVE (NEGATIVE)
[2024-09-10 21:22] LABS: LIPASE 33 U/L (12-53)
[2024-09-10 21:24] LABS: ALBUMIN 3.7 G/DL (3.2-5.2); ALKALINE PHOSPHATASE 37 U/L (35-104); ALT/SGPT 20 U/L (7.0-40); AST/SGOT 11 U/L (<34); BILIRUBIN,DIRECT 0.1 MG/DL (<0.4); BILIRUBIN,TOTAL 0.4 MG/DL (0.3-1.2); BLOOD UREA NITROGEN 11 MG/DL (9-23); CALCIUM LEVEL 8.9 MG/DL (8.5-10.1); CARBON DIOXIDE LEVEL 27 MMOL/L (20-31); CHLORIDE LEVEL 110 MMOL/L (98-107); CREATININE FOR GFR 0.72 MG/DL (0.55-1.30); GLOMERULAR FILTRATION RATE > 60.0 (>60); GLUCOSE, FASTING 102 MG/DL (60-100); POTASSIUM SERUM 3.8 MMOL/L (3.5-5.1); SODIUM LEVEL 143 MMOL/L (136-145); TOTAL PROTEIN 6.4 G/DL (5.7-8.2)
[2024-09-10] MEDS: ONDANSETRON 4MG 2ML VIAL IV ONE (22:36)
[2024-09-10] MEDS: KETOROLAC 30 MG/ML 1ML VIAL IV ONE (22:37)
[2024-09-11 00:29] VITALS: BP 104/66; O2SAT 100
== END 2024-09-11 00:31 | disposition home or self-care (01) ==
LOC: M ED 19:27
DX: R10.9 Unspecified abdominal pain (principal); R11.0 Nausea; Z88.0 Allergy status to penicillin; Z88.1 Allergy status to other antibiotic agents; Z79.899 Other long term (current) drug therapy
CPT/HCPCS: 74176; 80048; 80076; 81001; 83690; 84703; 85025; 96374; 96375; 99284; J1885; J2405

== ENCOUNTER → 2024-10-28 | Outpatient (REF) | payer OTHER ==
[~2024-10-28] MED LIST changes: +LARI1TAB3
== END ==
LOC: M PLALAB 17:04
PROVIDERS: ATTEND Physician Assistant
DX: M13.0 Polyarthritis, unspecified (principal)